=== PATIENT | male | born 1980 | race Caucasian/White ===

== ENCOUNTER 2018-12-27 08:47 | Emergency (ER) | payer BC, OTHER ==
[2018-12-27 09:08] VITALS: BP 131/81
--- NOTE | 2018-12-27 09:37 | UC ---
UC Dental HPI - HPI Summary HPI Summary: Pt c/o right lower jaw/gum swelling and tenderness. Pt denies recent dental work or trauma. - History of Current Complaint Chief Complaint: UCDentalProblem Stated Complaint: ORAL COMPLAINT Time Seen by Provider: 12/27/18 09:30 Hx Obtained From: Patient Onset/Duration: Sudden Onset, Lasting Days, Still Present Severity: Moderate Pain Intensity: 3 Aggravating Factor(s): Chewing Alleviating Factor(s): Nothing Related History: Swelling - Allergies/Home Medications Allergies/Adverse Reactions: Allergies Allergy/AdvReac Type Severity Reaction Status Date / Time aspirin Allergy Vomiting Verified 12/27/18 09:03 Home Medications: Home Medications Ibuprofen TAB* [Advil TAB*] 400 mg PO Q6H PRN 12/27/18 [History Confirmed ] PMH/Surg Hx/FS Hx/Imm Hx Previously Healthy: Yes - Surgical History Surgical History: Yes Surgery Procedure, Year, and Place: HERNIA REPAIR AGE 1 - Family History Known Family History: Positive: Cardiac Disease - Social History Occupation: Employed Full-time Lives: With Family Alcohol Use: Daily Alcohol Amount: 2 beers daily Substance Use Type: None Smoking Status (MU): Heavy Every Day Tobacco Smoker Type: Cigarettes Amount Used/How Often: 1 PPD Have You Smoked in the Last Year: Yes Review of Systems All Other Systems Reviewed And Are Negative: Yes Constitutional: Positive: Negative Skin: Positive: Negative Eyes: Positive: Negative ENT: Positive: Dental Pain Respiratory: Positive: Negative Cardiovascular: Positive: Negative Gastrointestinal: Positive: Negative Genitourinary: Positive: Negative Motor: Positive: Negative Neurovascular: Positive: Negative Musculoskeletal: Positive: Negative Neurological: Positive: Negative Psychological: Positive: Negative Is Patient Immunocompromised?: No Physical Exam Triage Information Reviewed: Yes Appearance: Well-Appearing Vital Signs: Initial Vital Signs Temp 97.9 F 12/27/18 09:05 Pulse 72 12/27/18 09:05 Resp 16 12/27/18 09:05 BP 131/81 12/27/18 09:05 Pulse Ox 100 12/27/18 09:05 Vital Signs Reviewed: Yes Eye Exam: Normal ENT Exam: Normal Dental: Positive: Abscess @ - right lower jaw/gum ~ at#30 and 31 Neck exam: Normal Respiratory Exam: Normal Respiratory: Positive: No respiratory distress Musculoskeletal Exam: Normal Neurological Exam: Normal Psychological Exam: Normal Skin Exam: Normal Dental Complaint Course/Dx - Differential Dx/Diagnosis Differential Diagnosis/Dx: Dental Abscess, Fractured Tooth, Gingivitis Provider Diagnosis: Dental abscess Discharge - Sign-Out/Discharge Documenting (check all that apply): Patient Departure All imaging exams completed and their final reports reviewed: No Studies - Discharge Plan Condition: Stable Disposition: HOME Prescriptions: Amoxicillin PO (*) [Amoxicillin 875 MG (*)] 875 mg PO Q12H #20 tab Patient Education Materials: Dental Abscess (ED) Referrals: Loren Bray PA [Primary Care Provider] - If Needed Additional Instructions: Please follow up with your dental care provider as soon as possible. - Billing Disposition and Condition Condition: STABLE Disposition: Home
== END 2018-12-27 09:48 | disposition home or self-care (01) ==
LOC: UCCORT 08:47
DX: K04.7 Periapical abscess without sinus (principal); Z88.6 Allergy status to analgesic agent; F17.210 Nicotine dependence, cigarettes, uncomplicated
CPT/HCPCS: 99202; G0463

== ENCOUNTER 2019-08-28 17:38 | Emergency (ER) | payer BC ==
[2019-08-28 17:48] VITALS: BP 121/71
[2019-08-28 18:11] LABS: Influenza A Molecular NEGATIVE (Negative); Influenza B Molecular NEGATIVE (Negative)
[2019-08-28] MEDS ORDERED: Ibuprofen TAB* 400 MG PO ONE (18:32)
[2019-08-28] MEDS ORDERED: Amoxicillin/Clavulanate TAB* 875 MG PO ONE (18:33)
--- NOTE | 2019-08-28 18:35 | UC ---
FLU HPI - HPI Summary HPI Summary: patient has been feeling sick with URI symps for 7-8 days. over past 3 days has had sinus pain and pressure, coughing "junk" out of throat today very achey and fatigued - History of Current Complaint Chief Complaint: UCRespiratory Stated Complaint: COLD SYMPTOMS, BODY ACHES Time Seen by Provider: 08/28/19 18:06 Hx Obtained From: Patient Onset/Duration: Gradual Onset Severity Currently: Mild Severity Initially: Severe Pain Intensity: 9 Associated Signs & Symptoms: Positive: Fever, Nasal Congestion. Negative: Sore Throat Related Hx: Possible Flu/Infectious Exposure - Allergy/Home Medications Allergies/Adverse Reactions: Allergies Allergy/AdvReac Type Severity Reaction Status Date / Time aspirin Allergy Vomiting Verified 08/28/19 17:48 PMH/Surg Hx/FS Hx/Imm Hx Previously Healthy: Yes Psychological History: Anxiety - Surgical History Surgical History: Yes Surgery Procedure, Year, and Place: HERNIA REPAIR AGE 1 - Family History Known Family History: Positive: Cardiac Disease - Social History Occupation: Employed Full-time Lives: With Family Alcohol Use: None Alcohol Amount: 2 beers daily Substance Use Type: None Smoking Status (MU): Heavy Every Day Tobacco Smoker Type: Cigarettes Amount Used/How Often: 1 PPD Have You Smoked in the Last Year: Yes Cessation Counseling: Patient Advised to Stop Review of Systems All Other Systems Reviewed And Are Negative: Yes Constitutional: Positive: Fever, Fatigue Skin: Positive: Negative. Negative: Rash ENT: Positive: Sore Throat - states from PND, Sinus Congestion, Sinus Pain/ Tenderness. Negative: Ear Ache Respiratory: Positive: Negative. Negative: Cough Cardiovascular: Positive: Negative. Negative: Chest Pain Gastrointestinal: Positive: Negative. Negative: Vomiting, Diarrhea, Nausea Neurological: Positive: Negative Psychological: Positive: Negative Is Patient Immunocompromised?: No Physical Exam Triage Information Reviewed: Yes Appearance: Well-Appearing, No Pain Distress, Well-Nourished Vital Signs: Initial Vital Signs Temp 102.2 F 08/28/19 17:45 Pulse 100 08/28/19 17:45 Resp 18 08/28/19 17:45 BP 121/71 08/28/19 17:45 Pulse Ox 97 08/28/19 17:45 Vital Signs Reviewed: Yes Eye Exam: Normal Eyes: Positive: Conjunctiva Clear ENT: Positive: Pharynx normal - large amount white PND, Nasal congestion, TMs normal, Sinus tenderness Neck exam: Normal Neck: Positive: Supple, Nontender, No Lymphadenopathy Respiratory Exam: Normal Respiratory: Positive: Lungs clear Cardiovascular Exam: Normal Cardiovascular: Positive: RRR Neurological Exam: Normal Neurological: Positive: Alert Psychological Exam: Normal Skin Exam: Normal Skin: Negative: Rashes Flu Course/Dx - Differential Dx/Diagnosis Differential Diagnosis/HQI/PQRI: Influenza, Upper Respiratory Infection, Other - sinusitis Provider Diagnosis: Sinusitis Discharge ED - Sign-Out/Discharge Documenting (check all that apply): Patient Departure All imaging exams completed and their final reports reviewed: No Studies - Discharge Plan Condition: Good Disposition: HOME Prescriptions: Amoxicillin/Clavulanate TAB* [Augmentin TAB 875*] 875 mg PO BID #19 tab Patient Education Materials: Sinusitis (ED) Referrals: Loren Bray PA [Primary Care Provider] - 2 Days (if no better) Additional Instructions: drink plenty of fluids and rest take antibiotic as prescribed Use ibuprofen or Tylenol as directed for pain and fever - Billing Disposition and Condition Condition: GOOD Disposition: Home
== END 2019-08-28 18:48 | disposition home or self-care (01) ==
LOC: UCEAST 17:38
DX: J32.9 Chronic sinusitis, unspecified (principal); R05 Cough; R53.83 Other fatigue; F17.210 Nicotine dependence, cigarettes, uncomplicated; Z88.6 Allergy status to analgesic agent
CPT/HCPCS: 99212; A9270-GY; G0463

== ENCOUNTER 2019-10-17 12:44 | Emergency (ER) | payer BC ==
--- OUTSIDE RECORDS SUMMARY | 2019-10-17 12:48 | XMS REPORT | Continuity of Care Document ---
:1980 External Reference #:[id number] Author Name Anat Lopez FNP (transmitted by agent of provider Jessica Fernandes) Address [address] [place] [id number] Care Team Providers Name Role Phone Loren Bray PA - Medical Care Team Information Tool Adjuster [phone] Problems Active Problems Provider Date Anxiety state Dafne Ferreira M.D. Onset: 10/17/2015 Tobacco user Dafne Ferreira M.D. Onset: 10/17/2015 Enthesopathy of knee Lisseth Viera PA Onset: 02/05/2019 Localized, primary osteoarthritis Lisseth Viera PA Onset: 02/05/2019 Social History Type Date Description Comments Sex Unknown Cigarette Use Pack Years - 20 Tobacco Use Start: Unknown Current Cigarette Smoker 1 Pack Daily Smoking Status Reviewed: 07/05/19 Current Cigarette Smoker 1 Pack Daily ETOH Use 07/05/2019 Denies alcohol use Reports he quit drinking 4 months ago. Tobacco Use Start: Unknown Heavy tobacco smoker (more than 10 cigarettes/day) Recreational Drug Use Denies Drug Use Allergies, Adverse Reactions, Alerts Active Allergies Reaction Severity Comments Date Aspirin Stomach pain 10/18/2015 Medications Active Medications SIG Qnty Indications Ordering Provider Date Motrin Ib 1-2 tab by mouth 100tabs S63.601A Jessica Fernandes, 07/05/2019 200mg Tablets every 6 hours as MD needed for back pain Escitalopram Oxalate Take 1 Tablet 90tabs F41.9 Jessica Fernandes, 10/31/2015 Daily (Max Daily MD 10mg Tablets Dose: 1) Gabapentin take one capsule 270caps F41.9 Jessica Fernadnes, 300mg by mouth three MD Capsules times a day History Medications Thumb Splint/Right Neoprene Spica. 1units S63.601A Jessica Fernandes, 2018 - Medium as directed. 08/04/2019 [facility] [place] Medications Administered in Office Medication SIG Qnty Indications Ordering Provider Date Depomedrol 40mg/1cc Lisseth Viera PA 02/05/2019 (methylprednisolone acetate) Injection Immunizations CPT Code Status Date Vaccine Lot # [id number] Given 07/05/2019 Influenza Virus Vaccine, Quadrivalent, 36 Mos+, [id number] .[id number] Given 06/26/2018 Influenza Virus Vaccine, Quadrivalent, 36 Mos+, [id number] .[id number] Given 08/07/2016 Influenza Virus Vaccine Split Virus Use For Individual 3Yr Older Vital Signs Date Vital Result Comment 07/05/2019 7:27am BP Systolic Sitting Left Arm 120 mmHg BP Diastolic Sitting Left Arm 70 mmHg Body Temperature 97.6 F Heart Rate 72 /min Respiratory Rate 18 /min Height 74.5 inches 6'2.50" Weight 158.50 lb BMI (Body Mass Index) 20.1 kg/m2 BSA (Body Surface Area) 1.98 m2 [place] body weight in kilograms 88 kg 02/12/2019 10:33am BP Systolic Sitting Left Arm 129 mmHg BP Diastolic Sitting Left Arm 80 mmHg Body Temperature 96.4 F Heart Rate 67 /min Height 74.5 inches 6'2.50" Weight 165.00 lb BMI (Body Mass Index) 20.9 kg/m2 BSA (Body Surface Area) 2.01 m2 [place] body weight in kilograms 88 kg O2 % BldC Oximetry 99 % Results Test Acquired Date Facility Test Result H/L Range Note [place] Influenza 08/28/2019 [facility] Influenza A NEGATIVE Negative A & B Molecular [phone] Molecular Influenza B Molecular NEGATIVE Negative 1 1 Nurses Director: [id number] Procedures Date Code Description Status 07/05/2019 41523 Brief Emotional/Behav Assessment W/ Scoring Doc Per Completed Standard Inst Medical Devices Description No Information Available Encounters Type Date Location Provider Dx Diagnosis Office Visit 07/05/2019 Family Medicine Loren Bray PA F41.9 Anxiety disorder, 7:[address] unspecified S63.601A Unspecified sprain of right thumb, initial encounter F17.210 Nicotine dependence, cigarettes, uncomplicated Z71.6 Tobacco abuse counseling Z23 Encounter for immunization Assessments Date Code Description Provider 07/05/2019 F41.9 Anxiety disorder, unspecified Loren Bray PA 07/05/2019 S63.601A Unspecified sprain of right thumb, initial Loren Bray PA encounter 07/05/2019 F17.210 Nicotine dependence, cigarettes, uncomplicated Loren Bray PA 07/05/2019 Z71.6 Tobacco abuse counseling Loren Bray PA 07/05/2019 Z23 Encounter for immunization Loren Bray PA Plan of Treatment Future Appointment(s):01/10/2020 7:30 am - Loren Bray PA at [facility] RD07/05/2019 - Loren Bray, PAF41.9 Anxiety disorder, unspecifiedComments:Sy are mild. Continue with current medication. Work on good sleep habits, regular exercise and healthy diet. Try meditation or relaxation techniques as well.Follow up:PE 6 [id number] Unspecified sprain of right thumb, initial encounterNew Medication:Motrin Ib 200 mg - 1-2 tab by mouth every 6 hours as needed for back painThumb Splint/Right Medium - Neoprene Spica. as directed.Comments:Contusion. This should resolve over the next few weeks. Apply ice if sore. Use Motrin prn w food. Thumb spica during work will give some extra support and protection. Please call if this does not improve.F17.210 Nicotine dependence, cigarettes, uncomplicatedComments:Still smoking. Not ready to quit. But, improving lifestyle habits.Z71.6 Tobacco abuse [id number] Encounter for immunization Functional Status Functional Condition Comment Date Status Independent with all ADL's Active Mental Status Description No Information Available Referrals Description No Information Available
[2019-10-17 13:33] VITALS: BP 108/68
--- NOTE | 2019-10-17 13:42 | UC ---
Skin Complaint HPI - HPI Summary HPI Summary: He had 23 days of pain in his left side of his lower back and then broke out in a rash today. - History of Current Complaint Chief Complaint: UCGeneralIllness Time Seen by Provider: 10/17/19 13:37 Stated Complaint: RASH Hx Obtained From: Patient Onset/Duration: Gradual Onset, Lasting Days Timing: Constant Onset Severity: Moderate Current Severity: Moderate Pain Intensity: 4 Location: Discrete - Left low back Aggravating Factor(s): Nothing Alleviating Factor(s): Nothing Associated Signs & Symptoms: Positive: Negative - Allergy/Home Medications Allergies/Adverse Reactions: Allergies Allergy/AdvReac Type Severity Reaction Status Date / Time aspirin AdvReac Vomiting Verified 10/17/19 13:28 Home Medications: Home Medications Escitalopram Oxalate [Lexapro 10 mg] 10 mg PO DAILY 08/28/19 [History Confirmed 10/17/19] Gabapentin CAP(*) [Neurontin 300 CAP(*)] 300 mg PO TID 08/28/19 [History Confirmed 10/17/19] ValACYclovir (*) [Valtrex 1 GM(*)] 1 gm PO TID #21 tab 10/17/19 [Rx] PMH/Surg Hx/FS Hx/Imm Hx Previously Healthy: Yes - Surgical History Surgical History: Yes Surgery Procedure, Year, and Place: HERNIA REPAIR AGE 1 - Family History Known Family History: Positive: Cardiac Disease - Social History Alcohol Use: None Alcohol Amount: 2 beers daily Substance Use Type: None Smoking Status (MU): Heavy Every Day Tobacco Smoker Type: Cigarettes Amount Used/How Often: 1 PPD Have You Smoked in the Last Year: Yes Review of Systems All Other Systems Reviewed And Are Negative: Yes Constitutional: Positive: Negative Skin: Positive: Rash ENT: Positive: Negative Motor: Positive: Negative Neurovascular: Positive: Negative Musculoskeletal: Positive: Negative Neurological/Mental Status: Positive: Negative Physical Exam - Summary Physical Exam Summary: He is nontoxic in appearance with stable vital signs. Triage Information Reviewed: Yes Appearance: Well-Appearing, No Pain Distress Vital Signs: Initial Vital Signs Temp 99.5 F 10/17/19 13:29 Pulse 65 10/17/19 13:29 Resp 16 10/17/19 13:29 BP 108/68 10/17/19 13:29 Pulse Ox 99 10/17/19 13:29 Vital Signs Reviewed: Yes ENT Exam: Normal Respiratory Exam: Normal Cardiovascular Exam: Normal Abdominal Exam: Normal Skin: Positive: Rashes - He has a vesicular rash in the left low back. Course/Dx - Course Course Of Treatment: This looks and acts like shingles. We are catching this pretty early and I'm treating him with Valtrex. - Diagnoses Provider Diagnosis: Shingles Discharge ED - Sign-Out/Discharge Documenting (check all that apply): Patient Departure All imaging exams completed and their final reports reviewed: No Studies - Discharge Plan Condition: Stable Disposition: HOME Prescriptions: ValACYclovir (*) [Valtrex 1 GM(*)] 1 gm PO TID #21 tab Patient Education Materials: Shingles (ED) Referrals: Loren Bray PA [Primary Care Provider] - - Billing Disposition and Condition Condition: STABLE Disposition: Home
== END 2019-10-17 13:50 | disposition home or self-care (01) ==
LOC: UCEAST 12:44
DX: B02.9 Zoster without complications (principal); F17.210 Nicotine dependence, cigarettes, uncomplicated; Z88.8 Allergy status to other drugs, medicaments and biological substances
CPT/HCPCS: 99212; G0463